=== PATIENT | male | born 1965 | race Caucasian/White ===

== ENCOUNTER 2019-05-10 18:39 | Inpatient (IN) | payer OTHER ==
[~2019-05-10] VITALS: Ht 182.9 cm; Wt 97.5 kg
[~2019-05-10 18:39] MED LIST: ACET325 PO; Coumadin5 MG PO; ENOX40I SC; HYDACE10B PO; HYDMOR2 PO; IBUP800 PO; WARF5 PO; WARF7.5 PO
[2019-05-10 19:06] LABS: BASOPHILS ABSOLUTE AUTO 0.05 K/mm3 (0.00-0.23); BASOPHILS PERCENT AUTO 0 % (0-2); EOSINOPHILS ABSOLUTE AUTO 0.03 K/mm3 (0.00-0.68); EOSINOPHILS PERCENT AUTO 0 % (0-6); IMMATURE GRAN ABSOLUTE AUTO 0.09 K/mm3 (0.00-0.10); IMMATURE GRAN PERCENT AUTO 0 % (0-1); LYMPHOCYTES ABSOLUTE AUTO 2.52 K/mm3 (0.84-5.20); LYMPHOCYTES PERCENT AUTO 10 % (21-46); MONOCYTES ABSOLUTE AUTO 2.66 K/mm3 (0.16-1.47); MONOCYTES PERCENT AUTO 11 % (4-13); Mean Corpuscular HGB 30.5 pg (26.0-34.0); Mean Corpuscular Volume 90 fL (80-100); Mean Platelet Volume 9.4 fL (9.1-12.4); NEUTROPHILS ABSOLUTE AUTO 18.84 K/mm3 (1.96-9.15); NEUTROPHILS PERCENT AUTO 78 % (41-73); Platelet Count 347 K/mm3 (150-400); RDW Coefficient Variation 13.5 % (11.7-14.2); RDW Standard Deviation 44.5 fL (35.1-46.3); Red Blood Cell Count 5.25 M/mm3 (4.30-5.90); White Blood Cell Count 24.19 K/mm3 (4.00-11.30)
[2019-05-10 19:21] LABS: Alanine Aminotransfer (ALT/SGP 23 U/L (12-78); Albumin, Blood 4.2 g/dL (3.4-5.0); Albumin/Globulin Ratio 1.1 (0.8-1.8); Alk Phos 60 U/L (50-136); Anion Gap 3 mmol/L (6-16); Aspartate Aminotrans (AST/SGOT 12 U/L (12-37); Bilirubin, Total 1.1 mg/dL (0.1-1.0); Blood Urea Nitrogen 14 mg/dL (8-24); Bun/Creatinine Ratio 16.2 (12.0-20.0); CO2, Blood 28 mmol/L (21-32); Chloride, Blood 107 mmol/L (98-108); Creatinine, Blood 0.87 mg/dL (0.60-1.20); Globulin, Blood 3.8 g/dL (2.2-4.0); Glomerular Filtration Rate >60 (60-); Glucose, Blood 95 mg/dL (70-99); Potassium, Blood 3.8 mmol/L (3.5-5.5); Sodium, Blood 138 mmol/L (136-145)
[2019-05-10 21:32] LABS: Source, Urine Clean Catch
[2019-05-10 21:37] LABS: Bilirubin, Urine Neg (Neg); Blood, Urine Neg (Neg); Glucose Qualitative, Urine Neg (Neg); Ketones, Urine Neg (Neg); Leukocyte Esterase, Urine Neg (Neg); Nitrite, Urine Neg (Neg); Protein, Urine Neg (Neg); Specific Gravity, Urine 1.005 (1.003-1.022); Urobilinogen, Urine NORM (Normal)
[2019-05-10 21:38] LABS: Appearance, Urine Clear (Clear); Color, Urine Yellow (P-Yellow)
--- NOTE | 2019-05-11 04:41 | NUR ---
SHIFT SUMMARY PT NEW ADMIT THIS SHIFT. AAOX4. NPO THIS AM FOR POSSIBLE PROCEDURE. DISCOMFORT AT TOLERABLE LEVEL SINCE ADMISSION TO FLOOR, NO PAIN/NAUSEA MEDICATIONS GIVEN. INDEPENDENT IN ROOM. IVF + ABX PER ORDERS. AT BEDSIDE. PT RESTING WELL THIS AM WITH CALL LIGHT IN REACH, SURGICAL PACKET ON FRONT OF CHART.
--- NOTE | 2019-05-11 17:06 | NUR ---
SHIFT SUMMARY PT POD 0 LAP APPY. LAP SITES X'S 3 C/D/I. PAIN 05/06 WITH 1 NORCO. PT TOLERATING REGULAR DIET WITH NO N/V. VOIDING. PT INDEPENDENTLY AMBULATING TO BATHROOM.
[2019-05-12 05:26] LABS: BASOPHILS ABSOLUTE AUTO 0.02 K/mm3 (0.00-0.23); BASOPHILS PERCENT AUTO 0 % (0-2); EOSINOPHILS PERCENT AUTO 0 % (0-6); Hematocrit 39.6 % (37.0-53.0); Hemoglobin 13.4 g/dL (13.5-17.5); IMMATURE GRAN ABSOLUTE AUTO 0.06 K/mm3 (0.00-0.10); IMMATURE GRAN PERCENT AUTO 0 % (0-1); LYMPHOCYTES ABSOLUTE AUTO 1.86 K/mm3 (0.84-5.20); LYMPHOCYTES PERCENT AUTO 10 % (21-46); MONOCYTES ABSOLUTE AUTO 1.17 K/mm3 (0.16-1.47); MONOCYTES PERCENT AUTO 7 % (4-13); Mean Corpuscular HGB 30.4 pg (26.0-34.0); Mean Corpuscular HGB Conc 33.8 g/dL (31.5-36.5); Mean Corpuscular Volume 90 fL (80-100); Mean Platelet Volume 9.8 fL (9.1-12.4); NEUTROPHILS ABSOLUTE AUTO 14.71 K/mm3 (1.96-9.15); NEUTROPHILS PERCENT AUTO 83 % (41-73); Platelet Count 312 K/mm3 (150-400); RDW Coefficient Variation 13.9 % (11.7-14.2); RDW Standard Deviation 45.3 fL (35.1-46.3); Red Blood Cell Count 4.41 M/mm3 (4.30-5.90); White Blood Cell Count 17.82 K/mm3 (4.00-11.30)
--- NOTE | 2019-05-12 06:03 | NUR ---
SHIFT SUMMARY POD#1. AAOX4. DISCOMFORT CONTROLLED WITH 2 NORCO X2 THIS SHIFT. NO NAUSEA/EMESIS. ABD INCISION X3 WITH STERI STRIPS C/D/I. GOOD PO INTAKE + OUTPUT. UP AMBULATING IN ROOM + HALLS INDEPENDENTLY. REPORTING LARGE AMOUNTS OF FLATUS, NO BM POST OP. IVF + ABX PER ORDERS. PT RESTED WELL T/O NIGHT. AWAITING LABS THIS AM. NADN. PT SITTING UP IN BED AT THIS TIME ON LABTOP WITH CALL LIGHT IN REACH.
[2019-05-12] MEDS ORDERED: AMOCLA875 PO (10:34)
[2019-05-12] MEDS ORDERED: HYDR1TAB94 PO (10:35)
--- NOTE | 2019-05-12 11:46 | NUR ---
DISCHARGE PT DISCHARGED HOME FROM UNIT AT APROX 1230. PT GIVEN WRITTEN AND VERBAL DISCHARGE INSTRUCTIONS AND VERBALIZED UNDERSTANING OF THESE INSTRUCTIONS. WRITTEN RX FOR PAIN MEDICATION/ABX GIVEN TO PT. IV REMOVED, PT TOLERATED WELL. WHEELCHAIR TO CAR
--- NOTE | 2019-05-13 10:50 | NUR ---
05/13/19 1050 Hafsa Green VERIFICATIONS, AUDITS.
== END 2019-05-12 11:44 | disposition home or self-care (01) | DRG 343 ==
LOC: ER 18:39 → SURS 18:40 → ER 18:40 → SURS 18:40
PROVIDERS: Emergency Medicine; ADMIT Surgery
PROC: 0DTJ4ZZ Resection of Appendix, Percutaneous Endoscopic Approach (ICD-10-PCS; principal; 2019-05-11 11:00)
DX: K35.80 Unspecified acute appendicitis (principal); F17.210 Nicotine dependence, cigarettes, uncomplicated
CPT/HCPCS: 36415; 74177; 80053; 81003; 83605; 83690; 85025; 96361; 96365-59; 96375; 96376; 99285-25; A9270-GY; J1100; J1885; J2250; J2405; J2543; J2704; J2710; J3010; J7030; J7120; Q9967